=== PATIENT | male | born 1970 | race Caucasian/White ===

== ENCOUNTER 2017-09-21 17:07 | Emergency (ER) | payer SELFPAY ==
[~2017-09-21] VITALS: Ht 177.8 cm; Wt 90.7 kg
[2017-09-21 17:21] VITALS: BP_SYST 136
--- NOTE | 2017-09-21 17:27 | NUR ---
Patient triaged and placed in waiting room. VSS and patient appears in no acute distress at this time. Accompanied by SELF, awaiting available bed, and MD notified of need for MSE.
[2017-09-21] MEDS ORDERED: KETOROLAC TROMETHAMINE 60 MG/2 ML VIAL IM ONE (18:15)
--- NOTE | 2017-09-21 18:52 | NUR ---
PT LEFT WITHOUT BEING SEEN
== END 2017-09-21 18:52 | disposition left against medical advice (07) ==
LOC: SED 17:20
DX: M54.5 Low back pain (principal); Z53.21 Procedure and treatment not carried out due to patient leaving prior to being seen by health care provider